=== PATIENT | female | born 1965 | race Caucasian/White ===

== ENCOUNTER 2016-08-09 10:17 | Emergency (ER) | payer OTHER ==
--- NOTE | ~2016-08-09 | CT71 ---
[facility] A Service [facility] RADIOLOGY TEXT RESULTS PATIENT: RODRIGO CUEVA LOCATION: SED : 65 UNIT #: [id number] AGE: [address]: Basim Jacob MD SEX: F ORDER DR: [id number] [place] [address] [id number] E MR#: [id number] Acc #: [id number] NAME: RODRIGO CUEVA : 1965 SEX: F STUDY DATE/TIME: 08/09/2016 11:39 UNIT: SED ROOM: STUDY DESCRIPTION: CT Head Wo Contrast Attending Physician: Basim Jacob M.D. Ordering Physician: Basim Jacob M.D. Primary Care Physician: Primary Care Physician No MEDICAL IMAGING REPORT This report is preliminary unless electronic signature is present. EXAM Noncontrast CT head DATE 08/09/2016 11:39 HISTORY Migraine headache for 24 hours. Patient states entire head hurts. Additional history of previous seizures, COPD, hypertension, current smoker. COMPARISON Noncontrast CT head 09/21/[address] exam was performed with one or more of the following radiation dose reduction techniques: automatic exposure control, adjustment of mA and/or kV according to patient size, and iterative reconstruction. FINDINGS A few of the images are degraded by patient motion. Allowing for this degradation, no acute intracranial hemorrhage, mass lesion, mass effect or midline shift is appreciated. The bradley matter - white matter junction distinction appears preserved, and there is no convincing evidence of acute or evolving infarct. Mastoid air cells are clear. Major paranasal sinuses are clear. No acute calvarial abnormality. IMPRESSION Mild motion degradation. No acute intracranial findings. Dictated by... Sapphire Mccoy M.D. [facility] A Service [facility] RADIOLOGY TEXT RESULTS PATIENT: RODRIGO CUEVA LOCATION: SED : 65 UNIT #: [id number] AGE: [address]: Basim Jacob MD SEX: F ORDER DR: THIS IS AN ELECTRONICALLY VERIFIED REPORT Sapphire Mccoy M.D. at 08/10/2016 10:06 PM [facility]/wenceslao TD: 08/09/2016 14:50 JOB #: [id number] MEDICAL IMAGING REPORT
[~2016-08-09 10:17] MED LIST: ADVIL200 M1 DOB; ASPIRIN81 MG PO; BENADRYL25 M3 PO; DOXYCYCLINE HY100 M3 PO; EPIPEN0.3 MG/0.1 IM; HYDROXYZINE PAM25 MG PO; KEPPRA XR500 MG PO; KEPPRA500 M2 PO; KLONOPIN0.25 MG/TA PO; LEXAPRO5 MG PO; MEDROL PO; MEDROL4 MG/DOSE- PO; NAPROXEN500 M1 PO; NEURONTIN600 MG PO; NORCO 10/3251 TAB PO; PAIN RELIEVER325 M1 PO; PAXIL10 MG PO; PREDNISONE PO; PRINIVIL40 MG PO; TENORMIN25 MG PO; VICODIN 5/1 TAB 5/50 PO; ZANAFLEX4 M1 PO; ZESTRIL40 MG PO; ZOLOFT PO
[2016-08-09 10:51] LABS: BASOPHIL% 0.7 % (0-2.5); EOSINOPHIL% 0.6 % (0.0-7.0); HEMATOCRIT 47.6 % (35.0-45.0); LYMPHOCYTE# 1.5 X10e3 (1.0-3.5); LYMPHOCYTE% 30.3 % (17.0-45.0); MEAN CELL VOLUME 93.8 FL (83-96); MEAN CORPUSCULAR HEMOGLOBIN 31.4 PG (28-34); MEAN CORPUSCULAR HGB CONC 33.5 g/dL (30-36); MEAN PLATELET VOLUME 6.7 FL (6.5-11.5); MONOCYTE# 0.7 X10e3 (0-1.0); MONOCYTE% 14.4 % (3.0-12.0); NEUTROPHIL# 2.6 X10e3 (1.5-7.1); PLATELET COUNT 112 X10e3 (140-420); RED BLOOD COUNT 5.08 X10e (3.90-5.30); RED CELL DISTRIBUTION WIDTH 12.9 % (11.0-15.5); WHITE BLOOD COUNT 4.8 X10e3 (4.0-10.5)
[2016-08-09 11:03] LABS: DIFF IND NO
[2016-08-09 11:14] LABS: ALBUMIN SERUM 4.3 g/dL (3.5-5.0); ALKALINE PHOSPHATASE 76 U/L (32-92); ALT (SGPT) 21 U/L (10-40); AST (SGOT) 28 U/L (10-42); BILIRUBIN, DIRECT 0.2 mg/dL (0.0-0.2); BILIRUBIN,INDIRECT 0.4 mg/dL (0.0-0.9); BILIRUBIN,TOTAL 0.6 mg/dL (0.2-2.0); BLOOD UREA NITROGEN 10 mg/dL (9-23); BUN/CREATININE RATIO 14.28; CALCIUM SERUM 8.9 mg/dL (8.4-10.2); CARBON DIOXIDE 34 mmol/L (22-31); CHLORIDE 99 mmol/L (100-111); CREATININE SERUM 0.7 mg/dL (0.6-1.4); GLOM FILT RATE Estimated ABOVE60 mL/min (>60); GLUCOSE FASTING 112 mg/dL (70-110); POTASSIUM 4.1 mmol/L (3.5-5.1); PROTEIN TOTAL SERUM 7.8 g/dL (6.0-8.3); SODIUM 137 mmol/L (135-145)
== END 2016-08-09 13:21 | disposition home or self-care (01) ==
LOC: SED 10:17
PROVIDERS: Emergency Medicine
DX: G43.909 Migraine, unspecified, not intractable, without status migrainosus (principal); I10 Essential (primary) hypertension; J45.909 Unspecified asthma, uncomplicated; J44.9 Chronic obstructive pulmonary disease, unspecified; Z90.49 Acquired absence of other specified parts of digestive tract; Z90.710 Acquired absence of both cervix and uterus; F17.200 Nicotine dependence, unspecified, uncomplicated; Z88.0 Allergy status to penicillin
CPT/HCPCS: 36415; 70450; 80048; 80076; 85025; 96374; 96375; 96376; 99284; J1100; J1170; J1200; J1885; J2765

== ENCOUNTER 2016-12-06 16:11 | Emergency (ER) | payer OTHER | END 2016-12-06 17:20 | disposition home or self-care (01) | LOC: CFTX 16:11 → CED 16:11 → CFTX 17:13 | DX: R21 Rash and other nonspecific skin eruption (principal); I10 Essential (primary) hypertension; G40.909 Epilepsy, unspecified, not intractable, without status epilepticus; F17.210 Nicotine dependence, cigarettes, uncomplicated; Z88.0 Allergy status to penicillin | CPT/HCPCS: 99282 ==

== ENCOUNTER 2017-01-30 08:58 | Inpatient (IN) | payer OTHER ==
[~2017-01-30] VITALS: Ht 167.6 cm; Wt 128.0 kg
--- NOTE | ~2017-01-30 | CR72 ---
[facility] A Service of [facility] RADIOLOGY TEXT RESULTS PATIENT: RODRIGO CUEVA LOCATION: ABBY : 65 UNIT #: [id number] AGE: [address]: Sandra Babb MD SEX: F ORDER DR: [id number] [place] [id number] [facility]. [place], [place] [address] [id number] E MR#: [id number] Acc #: [id number] NAME: RODRIGO CUEVA : 1965 SEX: F STUDY DATE/TIME: 01/30/2017 09:44 UNIT: ABBY ROOM: STUDY DESCRIPTION: CR Chest Single View Portable Attending Physician: Sandra Babb M.D. Ordering Physician: Sandra Babb M.D. Primary Care Physician: No Family Physician MEDICAL IMAGING REPORT This report is preliminary unless electronic signature is present EXAM Chest portable 01/30/2017 0944 hours CLINICAL HISTORY 52-year-old woman complaining of shortness of air for 2 days. History of COPD and hypertension. COMPARISON 07/06/2016 FINDINGS Single upright portable view demonstrates slightly low lung volumes. Heart size is within normal limits. There is a stable mildly tortuous aorta when allowing for slight rotation. There is mild pulmonary venous distension and mild diffuse interstitial prominence suggesting an element of mild interstitial edema, new from 07/06/2016. IMPRESSION There is mild diffuse interstitial change in both lungs likely an element of mild interstitial edema, new from 07/06/2016. No pleural effusion is seen. Dictated by... Kate Butts M.D. THIS IS AN ELECTRONICALLY VERIFIED REPORT Kate Butts M.D. at 01/30/2017 2:31 PM [facility]/sophia TD: 01/30/2017 11:33 JOB #: [id number] [facility] A Service [facility] RADIOLOGY TEXT RESULTS PATIENT: RODRIGO CUEVA LOCATION: ABBY : 65 UNIT #: [id number] AGE: [address]: Sandra Babb MD SEX: F ORDER DR: MEDICAL IMAGING REPORT Page 1 of 1 COPY
--- NOTE | ~2017-01-30 | CT71 ---
[facility] A Service of [facility] RADIOLOGY TEXT RESULTS PATIENT: RODRIGO CUEVA LOCATION: CEDOF : [birth year] UNIT #: [id number] AGE: [address]: Ailyn Coughlin MD SEX: F ORDER DR: [id number] [facility] [address] [place], [place] [address] [id number] E MR#: [id number] Acc #: [id number] NAME: RODRIGO CUEVA : 1965 SEX: F STUDY DATE/TIME: 01/30/2017 10:32 UNIT: ABBY ROOM: STUDY DESCRIPTION: CT Head Wo Contrast Attending Physician: Sandra Babb M.D. Ordering Physician: Sandra Babb M.D. Primary Care Physician: No Primary Care Physician MEDICAL IMAGING REPORT This report is preliminary unless electronic signature is present EXAM Head CT without HISTORY Headache for 2 days. History of seizure disorder, hypertension. TECHNIQUE Routine noncontrast head CT is reviewed. This CT exam was performed with one or more of the following radiation dose reduction techniques: automatic exposure control, adjustment of mA and/or kV according to patient size, and iterative reconstruction. COMPARISON 08/09/2016 FINDINGS The mastoid air cells are clear. The visualized paranasal sinuses contain mild mucosal disease. There is no sinus air-fluid level. Allowing for some motion, there is no evidence for acute intracranial hemorrhage or extraaxial fluid collection. The ventricles are normal in size and configuration and the bradley-white junction is relatively well-maintained. There is motion limitation of this study on multiple images. No intracranial mass effect. IMPRESSION 1. Allowing for motion degradation of the study, there is no acute intracranial abnormality appreciated. 2. Mild paranasal sinus disease, but no air-fluid level in the visualized paranasal sinuses. Dictated by... Delia Frey M.D. [facility] A Service [facility] RADIOLOGY TEXT RESULTS PATIENT: RODRIGO CUEVA LOCATION: CEDOF : [birth year] UNIT #: [id number] AGE: [address]: Ailyn Coughlin MD SEX: F ORDER DR: THIS IS AN ELECTRONICALLY VERIFIED REPORT Delia Frey M.D. at 01/30/2017 5:19 PM [facility]/jeremi TD: 01/30/2017 12:33 JOB #: [id number] MEDICAL IMAGING REPORT Page 1 of 1 COPY
--- NOTE | ~2017-01-30 | EKG ---
PATIENT: RODRIGO CUEVA UNIT #: [id number] Ventricular Rate: 92 BPM Atrial Rate: 92 BPM P-R Interval: 132 ms QRS Duration: 84 ms Q-T Interval: 362 ms QTC Calculation(Bezet): 447 ms P Page: 70 degrees Calculated R Page: 25 degrees Calculated T Page: 33 degrees Diagnosis Line: Normal sinus rhythm Diagnosis Line: Normal ECG Diagnosis Line: When compared with ECG of 06-JUL-2016 11:41, Diagnosis Line: No significant change was found Diagnosis Line: Confirmed by ANA LUI MD ([id number]) on 01/30/2017 Diagnosis Line: 7:24:01 PM INTERPRETING MD: SANIA MILLS
--- NOTE | ~2017-01-30 | CO ---
Unit #: [id number] #: [id number] Patient: RODRIGO ANDRES [id number] [address] [address] [id number] I MR#: [id number] NAME: RODRIGO ANDRES ROOM: 579 Age: 52 Sex: F Admission Date: 01/30/2017 : 1965 Attending Physician: Trina Abdi M.D. Consultation Date: 02/01/2017 CONSULTATION REPORT REASON FOR CONSULTATION Anxiety, depression. HISTORY OF PRESENT ILLNESS Ms. Rodrigo Andres is a 52-year-old white female, seen in room 579, bed 1 on 02/01/2017 at [facility]. The patient moderately obese, dressed in hospital attire, receiving oxygen through nasal cannula. Reported having severe anxiety and depression. The patient reports that she was on Lexapro and Klonopin combination, but then they cut her off. The patient denied any use of any drugs or alcohol. The patient reported feeling sad, depressed, severe anxiety, but denied any suicidal or homicidal ideation. Denied any psychotic symptom. The patient's vital signs; temperature 98.3, pulse 90, respirations 18, blood pressure 162/103, and oxygen saturation 93%. PAST PSYCHIATRIC HISTORY Remarkable for history of depression, anxiety, history of outpatient treatment. No history of any suicide attempt or inpatient treatment. MEDICAL HISTORY History of atypical chest pain, treatment, stress test normal on 07/07/2016; chronic obstructive pulmonary disease; hypertension; seizure disorder; hyperlipidemia; chronic pain; obstructive sleep apnea, noncompliant with CPAP; history of viral meningitis. ALLERGIES Penicillin. MEDICATION HISTORY The patient's home medications none, but currently on Solu-Medrol 80 mg q.12 hours, Topamax 100 mg b.i.d. p.r.n., Fioricet, Humibid LA, hydralazine, Combivent. FAMILY AND SOCIAL HISTORY The patient reports that she has a good support system. No history of abuse. Denied any use of any drugs or alcohol. REVIEW OF SYSTEMS Complete review of system unremarkable. MENTAL STATUS EXAMINATION Vital signs; please see above. General appearance; the patient moderately obese, dressed casually, lying in bed, seemed somewhat anxious, nervous, receiving oxygen through nasal cannula. Attention span and concentration, Unit #: [id number] #: [id number] Patient: RODRIGO ANDRES. Speech, regular rate and coherent. Oriented in time, place, and person. Mood and affect; sad, dysphoric, anxious, sad, depressed. Thought process, coherent. Thought content, the patient denied any thoughts of harming self or others or any hallucination. Recent and remote memory, fair. Language, intact. Fund of knowledge, fair. Insight and judgment, fair to slightly impaired. DIAGNOSES Psychiatric: Major depressive disorder, recurrent, severe, F33.2; anxiety disorder, not otherwise specified, F40.01. Secondary diagnosis: Deferred. Medical diagnosis: Please refer to H and P. Stressors: Psychosocial stressor. ASSESSMENT/PLAN 1. Supportive psychotherapy and psychoeducation provided to the patient. 2. Educated about benefits and side effects of medication and course and prognosis of illness. 3. Advised to start the patient on Lexapro 10 mg at bedtime, Desyrel 50 mg at bedtime for sleep, Vistaril 25 mg t.i.d. for anxiety. Recommending to change Klonopin to 0.5 mg t.i.d. while the patient is in hospital and plan to stop after discharge from the hospital and continue with Vistaril for further treatment. The patient is having severe anxiety, as the patient is currently on Solu-Medrol, which is to help with at this time. We will continue to follow. Please feel free to call if any questions, telephone #[phone]. Dictated by... Marisol Lozano/elias TD: 02/01/2017 18:32 JOB #: [id number] CONSULTATION REPORT Page 1 of 1 X Lincoln Souza MD X CONSULTATION REPORT
--- NOTE | ~2017-01-30 | DS ---
Unit #: [id number] #: [id number] Patient: RODRIGO CUEVA [id number] [address] [place], [place] [address] [id number] I MR#: [id number] NAME: RODRIGO CUEVA ROOM: 579 Age: 52 Sex: F Admission Date: 01/30/2017 : 1965 Discharge Date: 02/02/2017 Attending Physician: Trina Abdi M.D. Primary Care Physician: No Primary Care Physician DISCHARGE SUMMARY REASON FOR ADMISSION Headache, intractable foot pain. HISTORY OF PRESENT ILLNESS/HOSPITAL COURSE Patient is a very scattered/poor historian. She is a 52-year-old female with underlying history of COPD - noncompliant with home O2, hypertension, hyperlipidemia, severe morbid obesity, anxiety, depression, prior history of seizure disorder who really has not taken any of her medications for approximately 1 year secondary to lack of insurance and/or not seeing her primary care physician. She states that approximately 6 months ago she received insurance via passport but was told that she only had physicians outside of [place]; therefore, she decided not to take any of her medications. She stated that she had been developing acute onset of shortness of breath over the past several days. She, in the past, was diagnosed with endstage COPD and was placed on 2 liters 24/7. However, she states that she was unable to receive oxygen. Therefore, she initially was admitted under the premise of acute hypoxic respiratory failure. Initial chest x-ray findings did raise the possibility of pneumonia. However, CT chest noncontrast showed prior chronic changes; however, no acute infiltrate was noted. Appropriately, she was placed on Solu-Medrol, aerosols, IV antibiotics, which have been now transitioned into p.o. medications. She is currently at baseline O2 at rest, approximately 2 to 3 liters. With ambulation her O2 requirements have increased, and she will be discharged under the premise of oxygen 24/7. She does have a prior history of obstructive sleep apnea, to which recommendation has been made for outpatient sleep evaluation. Information has been given for a new hand flesher for her, Dr. Jones and associates. Secondary to her history of anxiety, depression, we did place consultation to Dr. Souza who began new regimen of medications for her. She does suffer from severe anxiety and/or depression, as her son was recently murdered, and, therefore, she states that she does take care of her grandkids. This has increased her overall level of stress on her. Secondary to intractable headache and prior history of viral meningitis, we did place consultation to Dr. Gunn and associates for evaluation. He felt as though the likelihood of viral meningitis was low. Secondary to intractable headache, she was placed on routine medications, including Fioricet, which did provide some relief. I will give her a prescription Unit #: [id number] #: [id number] Patient: RODRIGO CUEVA for both Topamax, as well as Imitrex, at time of discharge. At this point in time, patient is stable for discharge home. Her overall prognosis is guarded at best secondary to longstanding history of noncompliance, as well as inability of obtain primary care. This has been reinforced with her on numerous occasions, the importance of following up with a primary care physician and/or following up in regard to her COPD, generalized anxiety, as well as chronic medical conditions. FINAL DISCHARGE DIAGNOSES 1. Acute hypoxic respiratory failure on chronic respiratory failure. 2. Endstage chronic obstructive pulmonary disease, on home oxygen. 3. Anxiety/depression. 4. Ongoing tobacco abuse. 5. Hypertension. 6. Prior history of seizure disorder. 7. Hyperlipidemia. 8. Chronic back pain. 9. Obstructive sleep apnea, noncompliant with continuous positive airway pressure. FINAL DISCHARGE MEDICATIONS 1. DuoNeb aerosol solution q.6 scheduled. 2. Prednisone 40 mg p.o. daily x5 days. 3. Tylenol 650 mg p.o. q.6 p.r.n. 4. Topamax 100 mg p.o. b.i.d. 5. Lexapro 10 mg p.o. q.h.s. 6. Trazodone 50 mg p.o. q.h.s. 7. Vistaril 25 mg p.o. t.i.d. 8. Doxycycline 100 mg p.o. b.i.d. x5 days. DISCHARGE CONDITION Stable. DISCHARGE DISPOSITION Home. FOLLOW UP Follow up PCP 7 to 10 days. Dictated by... Trina Abdi M.D. ANNA/davon TD: 02/04/2017 17:31 JOB #: [id number] Unit #: [id number] #: [id number] Patient: RODRIGO CUEVA DISCHARGE SUMMARY Page 1 of 1 X Trina Abdi MD X DISCHARGE SUMMARY
--- NOTE | ~2017-01-30 | CT57 ---
[facility] A Service of [facility] RADIOLOGY TEXT RESULTS PATIENT: RODRIGO CUEVA LOCATION: [facility] 579-01 : [birth year] UNIT #: [id number] AGE: [address]: Trina Abdi MD SEX: F ORDER DR: [id number] [place] [id number] [facility]. [place], [place] [address] [id number] I MR#: [id number] #: [id number] NAME: RODRIGO CUEVA : 1965 SEX: F STUDY DATE/TIME: 01/31/2017 17:23 UNIT: [facility] ROOM: [facility] STUDY DESCRIPTION: CT Chest Wo Cont Attending Physician: Trina Abdi M.D. Ordering Physician: Trina Abdi M.D. Primary Care Physician: No Primary Care Physician MEDICAL IMAGING REPORT This report is preliminary unless electronic signature is present EXAM CT chest without contrast. HISTORY Shortness of air, cough for 3-4 days. History of asthma, COPD, DIP. TECHNIQUE Axial images performed through the chest without contrast. Multiplanar reconstructed images reviewed. This CT exam was performed with one or more of the following radiation dose reduction techniques: automatic exposure control, adjustment of mA and/or kV according to patient size, and iterative reconstruction. FINDINGS There are scattered predominately peripheral areas of parenchymal opacity and linear stranding, probably representing areas of subsegmental atelectasis. This is seen primarily within the right lateral lung and right lung base but also in the left lower lung. No dense airspace disease or consolidation. No effusions. No mass lesions. Trachea and bronchi unremarkable. Heart, aorta, and pulmonary vessels unremarkable on this unenhanced study. Upper abdomen unremarkable except for postcholecystectomy change. Osseous structures and thoracic inlet appear normal. IMPRESSION 1. Scattered areas of linear parenchymal opacity, particularly within the right middle lobe laterally and right lower lobe laterally. This is felt to represent areas of subsegmental atelectasis. No active pneumonitis or evidence of diffuse lung disease. 2. Small granulomas both lung bases compatible with prior granulomatous disease. [facility] A Service of [facility] RADIOLOGY TEXT RESULTS PATIENT: RODRIGO CUEVA LOCATION: [facility] 579-01 : [birth year] UNIT #: [id number] AGE: [address]: Trina Abdi MD SEX: F ORDER DR: Dictated by... Courtney Lloyd M.D. THIS IS AN ELECTRONICALLY VERIFIED REPORT Courtney Lloyd M.D. at 02/01/2017 6:54 PM ANDER/zeinab TD: 02/01/2017 00:34 JOB #: [id number] MEDICAL IMAGING REPORT Page 1 of 1 COPY
--- NOTE | ~2017-01-30 | BMI ---
[facility] Nutrition Therapy DATE: 02/01/17 Patient: RODRIGO CUEVA Physician: MARIE Address: [address] [facility] Room/Bed: [address] [place] [address], Zip: [place] [address] Admit Date: 01/30/17 Date of : [birth year] Height: 5 6 Weight: 282 128 HIGH BMI NOTE: ANTHROPOMETRICS: HT: 66" WT: 128 KG BMI: 45.5 DIET: HEART HEALTHY RECOMMENDATIONS: 1. CONTINUE CURRENT DIET TO PROMOTE GRADUAL WEIGHT LOSS TOWARDS A HEALTHY BMI RANGE. Respectfully, JHONNY IRBY RD, LD [facility] cc: client file
--- NOTE | ~2017-01-30 | HP ---
Unit #: [id number] #: [id number] Patient: RODRIGO CUEVA [id number] [address] [address] [id number] I MR#: [id number] NAME: RODRIGO CUEVA ROOM: 69859 Age: 52 Sex: F Admission Date: 01/30/2017 : 1965 Attending Physician: Ailyn Coughlin M.D. Primary Care Physician: No Primary Care Physician HISTORY AND PHYSICAL CHIEF COMPLAINT Headache, foot pain. HISTORY OF PRESENT ILLNESS The patient is a 52-year-old female with a past medical history of chronic obstructive pulmonary disease, hypertension, hyperlipidemia, anxiety, depression, seizure disorder, chronic back pain, obstructive sleep apnea, viral meningitis, who presented to the emergency department for evaluation of the above. The patient states that she has had a headache intermittently over the past couple of days. Today it was severe and awoke her from sleep around 3:30. She states that the pain is in the back of her head, extending from the neck. She described it as "pain." It is exacerbated by light and sound. It is alleviated somewhat by Toradol. She states that it was initially a 10. It is now a 7. The patient had a CT of the head in the emergency department that showed nothing acute. The patient also complains of shortness of breath. She states that she has had increasing shortness of breath and intermittently productive cough for the past two to three days. She denies any fever. No chest pain. She has had decreased appetite, but no vomiting or diarrhea. Of note, the patient has not taken any medications for several months. She states that she has not had a primary care physician. In the emergency department initial pulse and blood pressure were 94 and 142/89 respectively. Oxygen saturation 90% on room air. She was given 30 mg of Toradol as well as 125 mg of Solu-Medrol, 10 mg of Cardizem. She is being admitted to [facility] for evaluation and further treatment. PAST MEDICAL HISTORY 1. Admission to [facility] 07/06 through 07/07/2016 for atypical chest pain. She underwent a stress test that was normal. 2. Anxiety/depression. 3. Chronic obstructive pulmonary disease. The patient states that she is supposed to be on home oxygen. 4. Hypertension. 5. Seizure disorder. Previously on Keppra. The patient states that her last seizure was about a year ago. 6. Hyperlipidemia. 7. Chronic back pain. Unit #: [id number] #: [id number] Patient: RODRIGO CUEVA 8. Obstructive sleep apnea, noncompliant with CPAP. 9. History of viral meningitis. PAST SURGICAL HISTORY 1. Cholecystectomy. 2. Hysterectomy. 3. Hernia repair. 4. Cardiac catheterization. SOCIAL HISTORY The patient smokes half pack of cigarettes daily. She denies alcohol use. She lives by herself. FAMILY HISTORY Notable for her mother having coronary artery disease. Both parents had diabetes. ALLERGIES Penicillin. HOME MEDICATIONS None. REVIEW OF SYSTEMS A complete review of systems was negative except as indicated in the history of present illness. The patient states that she is also having pain in her feet. This has been going on for several months. PHYSICAL EXAMINATION GENERAL: The patient is a female who is awake and alert, in no acute distress. VITALS: Temperature is 98.6, pulse 94, respiratory rate 14, blood pressure 148/89, oxygen saturation 90% on room air. HEENT: The head is atraumatic. Mucous membranes are moist. NECK: Supple. Trachea is midline. LUNGS: Scattered expiratory wheezes. Breathing is mildly labored with conversation. HEART: Regular rate and rhythm. ABDOMEN: Obese, soft, nontender, with bowel sounds present in all four quadrants. EXTREMITIES: 1+ edema. They are nontender. NEUROLOGIC: The patient is awake and alert. She follows commands. She is moving all extremities. PSYCH: The patient is anxious. SKIN: Skin demonstrates scattered abrasions on the lower extremities. DIAGNOSTIC STUDIES IMAGING: Chest x-ray shows diffuse interstitial change, concerning for mild edema. CT of the head shows nothing acute. LABORATORY: Comprehensive metabolic panel notable for CO2 of 32, glucose 111, BUN and creatinine 8 and 0.7 respectively. Troponin is less than 0.05. Complete blood count notable for platelets of 124. BNP is 24. CARDIOVASCULAR: EKG shows normal sinus rhythm with a rate of 92 beats per minute. Unit #: [id number] #: [id number] Patient: RODRIGO CUEVA ASSESSMENT The patient is a 52-year-old female with 1. Chronic obstructive pulmonary disease exacerbation. The patient received 125 mg of Solu-Medrol in the emergency department. 2. Tobacco abuse. 3. Headache. Improved with Toradol. 4. Hypertension. 5. Hyperlipidemia. 6. Anxiety/depression. 7. Seizure disorder, noncompliant with Keppra. 8. Chronic back pain. 9. Obstructive sleep apnea. Noncompliant with CPAP. 10. History of viral meningitis. 11. Morbid obesity with a BMI of 45. 12. Noncompliance. PLAN 1. Admit for observation. 2. Healthy heart diet. 3. Fall precautions. 4. Physical therapy and occupational therapy to evaluate and treat. 5. P.r.n. Toradol. 6. P.r.n. Tylenol. 7. Supplemental oxygen. 8. Solu-Medrol 80 mg IV q.12 h. 9. Mucinex 600 mg p.o. b.i.d. 10. Duo-Nebs q.4 h. 11. Doxycycline 100 mg p.o. b.i.d. for possible acute bronchitis. 12. Serial cardiac enzymes. 13. Check hemoglobin A1c and TSH. 14. P.r.n. hydralazine. 15. Neurologic checks. 16. Repeat labs in the morning. 17. SCDs for DVT prophylaxis. 18. Additional workup and consultants based on the above. 19. manager site/social work consult for help with medications and PCP list. Dictated by Marisol Fields/flavia TD: 01/30/2017 16:34 JOB #: [id number] Unit #: [id number] #: [id number] Patient: RODRIGO CUEVA HISTORY AND PHYSICAL Page 1 of 1 X Ailyn Coughlin MD HISTORY AND PHYSICAL
--- NOTE | ~2017-01-30 | CO ---
Unit #: [id number] #: [id number] Patient: RODRIGO CUEVA [id number] [facility] [address]. [place], [place] [address] [id number] MR#: [id number] NAME: RODRIGO CUEVA ROOM: 579 Age: 52 Sex: F Admission Date: 01/30/2017 : 1965 Attending Physician: Trina Abdi M.D. Primary Care Physician: Antonia Primary Care Physician Requesting Physician: Trina Abdi M.D. Consultation Date: 01/31/2017 CONSULTATION REPORT REASON FOR CONSULTATION Headaches. PATIENT IDENTIFICATION This is a 52-year-old, right-handed, white female who was evaluated in room 579 at [facility]. SOURCE OF INFORMATION The patient and previous records. PROBLEM LIST 1. COPD. 2. Morbid obesity. 3. Hypertension. 4. Questionable history of seizure disorder. 5. Cardiac cath revealing nonobstructive coronary artery disease. 6. Chronic pain syndrome. 7. Cholecystectomy. 8. Hysterectomy. 9. Knee repair. 10. I would say she may be noncompliant. 11. History of viral meningitis. 12. Anxiety and depression. HISTORY OF PRESENT ILLNESS This is a 52-year-old female who came for headache and foot pain and it is very strange because the patient stated that she does not have many problems. We are looking at her previous history and I have seen her in the past. She has a history of seizure disorder and she used to go to [facility]. She was on Keppra. She also had chronic headaches. She has been on Fioricet, but she is saying that this is all new. I am looking at the previous discharges and she has been on multiple medications, but not anymore for some reason, so the issue of noncompliance is there. She reports that over the last three days, she has been having headaches and the headache started with some photophobia and phonophobia and she said that she could not see so there is a possibility that there may have been an aura. She has COPD. She has other issues. She had significant hypertension when she came in and also, during the afternoon, her blood pressure at one time was as high as 159 systolic and 112 diastolic. It is better now. She has been otherwise afebrile. She has no signs of meningismus. She has no significant white count. She denies any fever chills, neck stiffness, other mental status changes. Unit #: [id number] #: [id number] Patient: RODRIGO CUEVA She is undergoing a lot of stress as her son was killed in May of 2015 and she has been taking care of 2 of his children. She is also going through financial crisis because of that and other issues. It does not look like she is taking any medication or following with any neurologist. She had decreased O2 sats and COPD exacerbation is also an issue right now. No falls or injuries. Again, no seizures. She denies any other change, but she is complaining of pain all over. PAST MEDICAL HISTORY As discussed above. PAST SURGICAL HISTORY As discussed above. ALLERGIES Penicillin. HOME MEDICATIONS She is not taking any. FAMILY HISTORY Mother had coronary artery disease. Both parents had diabetes. SOCIAL HISTORY She is single. She smokes about half a pack a day. Denies use of drugs and alcohol. REVIEW OF SYSTEMS CONSTITUTIONAL: 1) Headaches; 2) Shortness of air; 3) Pain all over; 4) She denies any recent weight issues. As a matter of fact, she stated that she has lost some weight, but I looked at her 2015 weights and she is stable. HEENT: Headaches and photophobia. NECK: No significant neck pain. CARDIOVASCULAR: No chest pain, clubbing, cyanosis, orthopnea, or palpitations. PULMONARY: Some shortness of air. GASTROINTESTINAL: No nausea, vomiting, diarrhea, or constipation. GENITOURINARY: No genitourinary symptoms. MUSCULOSKELETAL: No extremity problems other than pain. Back problems. Pain. PSYCHIATRIC: and depression. NEUROLOGIC: History of seizures and what sounds like migraines. HEMATOLOGIC/DERMATOLOGIC/ENDOCRINE: She denies other hematologic, dermatologic, or endocrine issues. PHYSICAL EXAMINATION VITAL SIGNS: Temperature 98.7, pulse is 105, respirations 19, and blood pressure 149/85, pain was 5-9/10, O2 sats 89% to 95%, weight of 283 Unit #: [id number] #: [id number] Patient: RODRIGO CUEVA pounds, BMI was 45. NEUROLOGICAL EXAMINATION: The patient is awake. She is alert. She is essentially oriented. She can name. She can follow commands. No right/left confusion. No finger agnosia. CRANIAL NERVE EXAMINATION: Demonstrates full neff of vision to confrontation. Pupils are round and reactive to light and accommodation, size about 3 mm. Eye movements are conjugate. I could not do funduscopic examination. Sensation on the face and scalp are normal. Strength of muscles of facial expression normal. Hearing seems to be intact bilaterally. Tongue was midline and I could not visualize the oropharynx or uvula. Head turning was spontaneous. No signs of meningismus. No neck stiffness. MOTOR: Examination demonstrated normal bulk and tone. Strength was essentially 5-/5 because of give-way weakness. SENSORY: Examination intact for soft touch and pain sensation. No extinction was seen. Romberg was not evaluated. GAIT: Examination was deferred. COORDINATION: Normal znxyhy-at-zkxy-to-finger. REFLEXES: I could not get any reflexes. Toes are equivocal. No Kernig signs of Babinski signs. DIAGNOSTIC STUDIES LABS: Random glucose was 111 to 233. Her TSH is 0.08 to 0.15. White count is 7.3. IMPRESSION Headaches, probably part of migraines. I really do not see anything suggesting that this is meningitis. She is undergoing a lot of stress. She has history of seizures. I will start her on Topamax 50 b.i.d. to go up later on and she needs to follow up with [facility] neurology. I really do not think at this point LP would be needed. I will give her some steroids, give her some Fiorinal. I will go from there. Supportive care; but, if needed, MRI, LP, and other tests would be done. Call me if any other questions, issues, or concerns. Further treatment will be based on how she does over time and she needs to follow up with neurology. Dictated by... Marisol Donahue/celine TD: 02/01/2017 09:05 JOB #: [id number] CONSULTATION REPORT Page 1 of 1 X Nataly Gunn MD CONSULTATION REPORT
[2017-01-30 10:16] LABS: BASOPHIL% 0.4 % (0-2.5); EOSINOPHIL# 0.3 X10e3 (0-0.7); EOSINOPHIL% 4.5 % (0.0-7.0); HEMATOCRIT 42.5 % (35.0-45.0); HEMOGLOBIN 14.4 gm/dL (12.0-16.0); LYMPHOCYTE# 2.1 X10e3 (1.0-3.5); LYMPHOCYTE% 27.4 % (17.0-45.0); MEAN CELL VOLUME 93.8 FL (83-96); MEAN CORPUSCULAR HEMOGLOBIN 31.7 PG (28-34); MEAN CORPUSCULAR HGB CONC 33.8 g/dL (30-36); MEAN PLATELET VOLUME 6.5 FL (6.5-11.5); MONOCYTE# 0.6 X10e3 (0-1.0); MONOCYTE% 8.1 % (3.0-12.0); NEUTROPHIL# 4.5 X10e3 (1.5-7.1); NEUTROPHIL% 59.6 % (40-75); PLATELET COUNT 124 X10e3 (140-420); RED BLOOD COUNT 4.53 X10e (3.90-5.30); RED CELL DISTRIBUTION WIDTH 13.8 % (11.0-15.5); WHITE BLOOD COUNT 7.6 X10e3 (4.0-10.5)
[2017-01-30 10:18] LABS: POC - CKMB <1.0 ng/mL (0.0-7.9); POC - TROPONIN <0.05 ng/mL (<=0.05)
[2017-01-30 10:22] LABS: DIFF IND NO
[2017-01-30 10:43] LABS: ALBUMIN SERUM 3.7 g/dL (3.5-5.0); BILIRUBIN, DIRECT 0.2 mg/dL (0.0-0.2); BILIRUBIN,INDIRECT 0.5 mg/dL (0.0-0.9); BILIRUBIN,TOTAL 0.7 mg/dL (0.2-2.0); BUN/CREATININE RATIO 11.42; CALCIUM SERUM 8.8 mg/dL (8.4-10.2); CREATININE SERUM 0.7 mg/dL (0.6-1.4); GLOM FILT RATE Estimated 99.6 mL/min (>60); POTASSIUM 4.2 mmol/L (3.5-5.1); PROTEIN TOTAL SERUM 6.8 g/dL (6.0-8.3)
[2017-01-30] MEDS ORDERED: LISINOPRIL PO (16:41)
[2017-01-30] MEDS ORDERED: PATIENT'S PHARMACY (16:41)
[2017-01-30] MEDS ORDERED: HYDROXYZINE HCL10 MG PO (16:41)
[2017-01-30] MEDS ORDERED: MICROZIDE12.5 M1 PO (16:41)
[2017-01-30] MEDS ORDERED: NOTE (16:42)
[2017-01-30 17:39] LABS: %MB 2.4 % (0.0-4.0); MB 1.6 ng/ml
[2017-01-30 22:14] LABS: BASOPHIL% 0.1 % (0-2.5); HEMATOCRIT 44.2 % (35.0-45.0); HEMOGLOBIN 14.7 gm/dL (12.0-16.0); LYMPHOCYTE# 1.2 X10e3 (1.0-3.5); LYMPHOCYTE% 16.7 % (17.0-45.0); MEAN CELL VOLUME 94.4 FL (83-96); MEAN CORPUSCULAR HEMOGLOBIN 31.5 PG (28-34); MEAN CORPUSCULAR HGB CONC 33.3 g/dL (30-36); MEAN PLATELET VOLUME 6.7 FL (6.5-11.5); MONOCYTE# 0.4 X10e3 (0-1.0); MONOCYTE% 5.6 % (3.0-12.0); NEUTROPHIL# 5.7 X10e3 (1.5-7.1); NEUTROPHIL% 77.6 % (40-75); PLATELET COUNT 127 X10e3 (140-420); RED BLOOD COUNT 4.68 X10e (3.90-5.30); RED CELL DISTRIBUTION WIDTH 13.7 % (11.0-15.5); WHITE BLOOD COUNT 7.3 X10e3 (4.0-10.5)
[2017-01-30 22:19] LABS: DIFF IND NO
[2017-01-30 22:48] LABS: BUN/CREATININE RATIO 24.28; CALCIUM SERUM 8.7 mg/dL (8.4-10.2); CREATININE SERUM 0.7 mg/dL (0.6-1.4); GLOM FILT RATE Estimated 99.6 mL/min (>60); POTASSIUM 4.1 mmol/L (3.5-5.1)
[2017-01-30 23:10] LABS: MB 1.8 ng/ml
[2017-01-31 06:13] LABS: %MB 3.5 % (0.0-4.0); MB 2.1 ng/ml
[2017-02-01 07:12] LABS: HEMATOCRIT 47.1 % (35.0-45.0); HEMOGLOBIN 15.6 gm/dL (12.0-16.0); MEAN CELL VOLUME 94.2 FL (83-96); MEAN CORPUSCULAR HEMOGLOBIN 31.3 PG (28-34); MEAN CORPUSCULAR HGB CONC 33.2 g/dL (30-36); MEAN PLATELET VOLUME 6.9 FL (6.5-11.5); RED CELL DISTRIBUTION WIDTH 13.9 % (11.0-15.5)
[2017-02-01 07:19] LABS: WHITE BLOOD COUNT 13.9 X10e3 (4.0-10.5)
[2017-02-01 07:56] LABS: ALBUMIN SERUM 3.8 g/dL (3.5-5.0); BILIRUBIN,TOTAL 0.1 mg/dL (0.2-2.0); CALCIUM SERUM 8.9 mg/dL (8.4-10.2); CREATININE SERUM 0.6 mg/dL (0.6-1.4); GLOM FILT RATE Estimated 104.8 mL/min (>60); POTASSIUM 4.9 mmol/L (3.5-5.1); PROTEIN TOTAL SERUM 6.9 g/dL (6.0-8.3)
[2017-02-02 06:42] LABS: EOSINOPHIL% 0.1 % (0.0-7.0); HEMATOCRIT 48.8 % (35.0-45.0); HEMOGLOBIN 16.4 gm/dL (12.0-16.0); LYMPHOCYTE# 4.5 X10e3 (1.0-3.5); LYMPHOCYTE% 31.3 % (17.0-45.0); MEAN CELL VOLUME 94.8 FL (83-96); MEAN CORPUSCULAR HEMOGLOBIN 31.8 PG (28-34); MEAN CORPUSCULAR HGB CONC 33.6 g/dL (30-36); MEAN PLATELET VOLUME 6.4 FL (6.5-11.5); MONOCYTE# 1.2 X10e3 (0-1.0); MONOCYTE% 8.1 % (3.0-12.0); NEUTROPHIL# 8.7 X10e3 (1.5-7.1); NEUTROPHIL% 60.5 % (40-75); PLATELET COUNT 173 X10e3 (140-420); RED BLOOD COUNT 5.15 X10e (3.90-5.30); WHITE BLOOD COUNT 14.3 X10e3 (4.0-10.5)
[2017-02-02 06:56] LABS: BUN/CREATININE RATIO 27.77; CALCIUM SERUM 8.8 mg/dL (8.4-10.2); CREATININE SERUM 0.9 mg/dL (0.6-1.4); GLOM FILT RATE Estimated 73.6 mL/min (>60); POTASSIUM 4.4 mmol/L (3.5-5.1)
[2017-02-02 06:59] LABS: DIFF IND NO
[2017-02-02] MEDS ORDERED: ACETAMINOPHEN PO (09:39)
[2017-02-02] MEDS ORDERED: IMITREX PO (09:40)
[2017-02-02] MEDS ORDERED: DESYREL50 MG PO (09:40)
[2017-02-02] MEDS ORDERED: LEXAPRO PO (09:41)
[2017-02-02] MEDS ORDERED: TOPAMAX PO (09:42)
[2017-02-02] MEDS ORDERED: VISTARIL PO (09:42)
[2017-02-02] MEDS ORDERED: DOXYCYCLINE PO (09:44)
[2017-02-02] MEDS ORDERED: PREDNISONE PO (09:44)
[2017-02-02] MEDS ORDERED: IPRATROPIUM NEB (09:45)
[2017-02-02] MEDS ORDERED: ALBUTEROL NEB (09:45)
[2017-02-02] MEDS ORDERED: HOME NEBULIZER (09:46)
[2017-02-02] MEDS ORDERED: OXYGEN (12:11)
== END 2017-02-02 18:30 | disposition home health service (06) | DRG 189 ==
LOC: CED 08:58 → CEDOF 15:40 → C5C 15:40 → CED 16:02 → CEDOF 16:02 → C5C 18:35 → CEDOF 18:35 → C5C 01-31 08:18
PROVIDERS: Emergency Medicine; Family Medicine
DX: J96.21 Acute and chronic respiratory failure with hypoxia (principal); F33.2 Major depressive disorder, recurrent severe without psychotic features; Z68.42 Body mass index [BMI] 45.0-49.9, adult; J44.1 Chronic obstructive pulmonary disease with (acute) exacerbation; I10 Essential (primary) hypertension; F17.210 Nicotine dependence, cigarettes, uncomplicated; E78.5 Hyperlipidemia, unspecified; M54.9 Dorsalgia, unspecified; G47.33 Obstructive sleep apnea (adult) (pediatric); Z91.19 Patient's noncompliance with other medical treatment and regimen; F41.9 Anxiety disorder, unspecified; G40.909 Epilepsy, unspecified, not intractable, without status epilepticus; E66.01 Morbid (severe) obesity due to excess calories; Z88.0 Allergy status to penicillin; G43.909 Migraine, unspecified, not intractable, without status migrainosus; J96.22 Acute and chronic respiratory failure with hypercapnia; G89.4 Chronic pain syndrome
CPT/HCPCS: 36415; 70450; 71010; 71250; 80048; 80053; 80076; 82550; 82553; 83036; 83880; 84443; 84484; 85025; 85027; 93005; 94640; 94760; 96374; 96375; 99285; J0360; J0780; J1885; J2405; J2930